=== PATIENT | male | born 1965 | race Caucasian/White ===

== ENCOUNTER 2016-11-19 19:45 | Emergency (ER) | payer OTHER ==
[2015-10-08 19:46] VITALS: BMI 35.0
[~2016-11-19 19:45] MED LIST: CYCLOBENZAPRINE10 MG PO; HYDROCODONE-APA1 TAB PO; ZESTRIL10 MG PO
[2016-11-19 20:19] LABS: BASOPHILS 0.3 % (0.0-2.0); EOSINOPHILS 3.5 % (0-7); HEMATOCRIT 44.1 % (42.0-54.0); HEMOGLOBIN 15.4 g/dL (13.5-17.5); IMMATURE GRANULOCYTES 0.4 % (0-5); LYMPHOCYTES 32.2 % (15-50); MCH 32.7 pg (26.0-34.0); MCHC 34.9 g/dL (31.0-37.0); MCV 93.6 fL (80.0-100.0); MEAN PLATELET VOLUME 10.9 fL (7.4-10.4); MONOCYTES 8.8 % (2-11); NEUTROPHILS 54.8 % (40-80); PLATELET COUNT 229 10x3/uL (130-400); RBC 4.71 10x6/uL (4.20-6.10); RDW 12.3 % (11.5-14.5); WBC 11.5 10x3/uL (4.8-10.8)
[2016-11-19 20:34] LABS: ALBUMIN 3.3 g/dL (3.4-5.0); ANION GAP 17.7 mmol/L (8-16); BILIRUBIN - TOTAL 0.3 mg/dL (0.2-1.3); CALCIUM 9.1 mg/dL (8.5-10.1); CARBON DIOXIDE 24.8 mmol/L (21.0-32.0); CREATININE - SERUM 1.2 mg/dL (0.6-1.3); POTASSIUM - SERUM 3.5 mmol/L (3.5-5.1)
== END 2016-11-19 22:17 | disposition home or self-care (01) ==
LOC: D.ER 19:45
PROVIDERS: Emergency Medicine
DX: R56.9 Unspecified convulsions (principal); R55 Syncope and collapse; E11.9 Type 2 diabetes mellitus without complications

== ENCOUNTER → 2018-05-28 10:35 | Outpatient (CLI) | payer OTHER ==
[2015-10-08 19:46] VITALS: BMI 35.0
== END | disposition home or self-care (01) ==
LOC: D.US 10:35
DX: H54.62 Unqualified visual loss, left eye, normal vision right eye (principal)

== ENCOUNTER 2019-03-07 09:46 | Emergency (ER) | payer OTHER ==
[~2019-03-07] VITALS: Ht 172.7 cm; Wt 90.9 kg
[2019-03-07 09:55] VITALS: Ht 172.7 cm; Wt 90.9 kg
[2019-03-07] MEDS ORDERED: ASPIRIN325 MG PO (09:56)
[2019-03-07 10:24] LABS: BASOPHILS 0.5 % (0-2); EOSINOPHILS 4.5 % (0-7); HEMATOCRIT 43.4 % (42.0-54.0); IMMATURE GRANULOCYTES 0.1 % (0-5); LYMPHOCYTES 21.4 % (15-50); MCH 32.5 pg (26.0-34.0); MCHC 34.6 g/dL (31.0-37.0); MCV 93.9 fL (80.0-100.0); MEAN PLATELET VOLUME 11.1 fL (7.4-10.4); MONOCYTES 6.7 % (2-11); NEUTROPHILS 66.8 % (40-80); PLATELET COUNT 224 10x3/uL (130-400); RBC 4.62 10x6/uL (4.20-6.10); RDW 12.5 % (11.5-14.5); WBC 7.5 10x3/uL (4.8-10.8)
[2019-03-07 10:53] LABS: ALBUMIN 3.5 g/dL (3.4-5.0); ALKALINE PHOSPHATASE 72 U/L (46-116); ALT (SGPT) 32 U/L (10-68); BILIRUBIN - TOTAL 0.25 mg/dL (0.2-1.3); CALC OSMOLALITY 280 mosm/kg (275-300); CALCIUM 9.2 mg/dL (8.5-10.1); CARBON DIOXIDE 23.9 mmol/L (21.0-32.0); CHLORIDE - SERUM 105 mmol/L (98-107); GLUCOSE 171 mg/dL (74-106); POTASSIUM - SERUM 4.2 mmol/L (3.5-5.1); PROTEIN - SERUM 7.6 g/dL (6.4-8.2); SODIUM 138 mmol/L (136-145); UREA NITROGEN 16 mg/dL (7-18); eGFR NON AFRICAN AMERICAN 82 mL/min (90-120)
[2019-03-07 11:02] LABS: CKMB 1.9 U/L (0.0-3.6); CREATINE KINASE 156 UL (21-232); TROPONIN-I < 0.017 ng/mL (0.000-0.060)
[2019-03-07] MEDS ORDERED: METFORMIN HCL500 M1 PO (14:31)
[2019-03-07] MEDS ORDERED: ZOFRAN8 MG PO (14:31)
[2019-03-07 15:05] VITALS: BP 120/73
--- NOTE | 2019-03-11 14:37 | CN ---
PATIENT NAME:RUBY LOERA MEDICAL RECORD: [id number] : 61 LOCATION:.ER ADMIT DATE: ACCOUNT: [id number] CONSULTING PHYSICIAN: JACKIE BAER MD REFERRING PHYSICIAN: DIANE SCOTT MD DATE OF CONSULTATION: 03/07/2019 DIAGNOSES: Episodic dizziness and lightheadedness. HISTORY OF PRESENT ILLNESS: Mr. Loera had an episode of what sounds like a vagal episode today when he was sitting on the toilet, became lightheaded, dizzy for 3 minutes. He had another episode when he was outside. He presents to the Emergency Room. He has no chest pain, no chest discomfort. Troponin is normal. EKG is normal. PHYSICAL EXAMINATION: GENERAL APPEARANCE: Well-nourished, well-developed, appears stated age. Level of distress, comfortable. PSYCHIATRIC: Mental status, alert, normal affect. Orientation, oriented to time, place and person. EYES: Lids and conjunctiva, noninjected. No discharge, no pallor. ENT: Lips, teeth, gums, normal dentition. Oropharynx, no cyanosis, no pallor. NECK: Carotid arteries, bilateral normal upstroke, no bruits, no thrills. JUGULAR VEINS: No jugular venous pressure or distention. CERVICAL LYMPH NODES: Nontender, nonenlarged. THYROID: Not enlarged. Nontender. No nodules. LUNGS: Respiratory effort, unlabored. CHEST: Normal curvature. No thoracic deformity. No chest wall tenderness. Percussion, resonant. Auscultation, clear. No wheezes, no rales, no rhonchi. CARDIOVASCULAR: Precordial exam, nondisplaced. No heaves or pericardial thrills. Rate and rhythm, regular. Heart sounds, normal S1, normal S2. No S3, no gallop, no rub. Systolic murmur, not heard. Diastolic murmur, not heard. EXTREMITIES: No cyanosis, no edema. Peripheral pulses, full and equal in all extremities, except as noted. No bruits appreciated. ABDOMEN: Soft, nondistended. Normal aorta. No bruit. Nontender. No masses. Liver, nontender, no hepatomegaly. Spleen, nontender, no splenomegaly. MUSCULOSKELETAL: No joint tenderness. No joint swelling. No erythema. NEUROLOGICAL: Normal gait, normal strength, normal tone. SKIN: Warm and dry. OVERALL IMPRESSION: Episodic dizziness, most likely vagal reaction. His blood sugar was over 500 at home. This may have something to do with it, but at this time no reason to think there is cardiac etiology of this. No other cardiac workup or testing is necessary. TRANSINT:[id number] Voice Confirmation ID: [id number] DOCUMENT ID: [id number] CONSULT REPORT [id number] RUBY LOERA, JACKIE RAMIREZ at 1437 CC: [id number] DICTATION DATE: 03/07/19 1411 CONTRACTS ANALYST: 03/07/19 1514 DEP ER 03/07/19 [place] [id number] [place] [id number]
== END 2019-03-07 15:05 | disposition home or self-care (01) ==
LOC: D.ER 09:46
PROVIDERS: Family Medicine
DX: R42 Dizziness and giddiness (principal); E11.9 Type 2 diabetes mellitus without complications; I10 Essential (primary) hypertension; R11.2 Nausea with vomiting, unspecified